=== PATIENT | male | born 1940 | race Caucasian/White ===

== ENCOUNTER 2016-10-16 15:14 | Inpatient (IN) | payer MEDICARE ==
--- NOTE | ~2016-10-16 | HP ---
Unit #: [id number] #: [id number] Patient: NEELIMA MEZA [id number] [place], [place] [address] [id number] MR#: [id number] NAME: NEELIMA MEZA ROOM: Age: 76 Sex: M Admission Date: 10/16/2016 : 1940 Attending Physician: Davon Ivy M.D. Primary Care Physician: Jared Underwood M.D. HISTORY AND PHYSICAL CHIEF COMPLAINT Double vision, nausea, vomiting for three days. DISCUSSION This is a 76-year-old gentleman, history of hard of hearing with cochlear implant, history of hypertension, benign prostate hypertrophy. He presented to emergency room with chief complaint of two days ago he had some blurring of vision and seeing double vision plus he has been having some nausea and vomiting. He went to see the primary doctor. He gave him some kind of shot. As per family (1) shot for his nausea and vomiting which has been resolved and he was told to come back on Wednesday if it is not better but with symptoms of dizziness and blurred vision he came to the ER. He also described vertigo. Everything was moving around, which has been resolved, too. He has a cochlear implant. Initially in the ER he had a CT head which was negative. MRI could not do because of cochlear implant. He has a CT angio of the head and neck which shows less than 50% right internal carotid artery mild to moderate plaque, otherwise unremarkable CTA. He has a questionable left eye extraocular muscle palsy and case was discussed with Dr. Lewis but he was found to be with elevated blood pressure. Eventually he has been admitted for high blood pressure monitoring for overnight observation. He feels better now. He denies any vertigo. He said is has been resolved. He denies any further nausea or vomiting. He still says he sees double vision I the left eye. He denies any other complaint. No chest pain. No cough. No fever. No chills. PAST MEDICAL HISTORY 1. Hypertension. 2. Benign prostate hypertrophy. 3. Hard of hearing. PAST SURGICAL HISTORY 1. History of prostate surgery. 2. Left arm surgery. 3. Right hand carpal tunnel release. 4. Cochlear implant. ALLERGIES No known drug allergy. FAMILY HISTORY Noncontributory. Unit #: [id number] #: [id number] Patient: NEELIMA MEZA SOCIAL HISTORY He denies smoking, denies other illicit drug use, drinks alcohol very rarely socially. MEDICATION FROM HOME He is supposed to be on: 1. Coreg at 12.5 b.i.d. 2. Lisinopril. 3. Doxazosin 4 mg. 4. Meclizine. 5. Mobic. REVIEW OF SYSTEMS All review of systems negative except history of present illness. PHYSICAL EXAMINATION GENERAL: On examination elderly man lying in the bed comfortably not in any distress. On general examination he is alert, awake, oriented x3, comfortable, not in any distress. VITAL SIGNS: Current vitals are following: Temperature 98.2, heart rate 70, respiration 18, blood pressure 185/102, oxygen 98% on room air. HEENT EXAMINATION: Pupils equally react to light and accommodation. Left eye medial rectus palsy. NECK: Supple. No JVD. No thyromegaly. LUNGS: Clear to auscultation. No rhonchi. No wheezing. HEART: S1, S2, regular rate and rhythm. ABDOMEN: Soft, nontender, nondistended. Bowel sounds positive. EXTREMITIES: Inspection normal. No cyanosis. No clubbing. No edema. NEUROLOGIC: Alert and oriented x4. No focal neurologic deficit. DIAGNOSTIC STUDIES LABORATORY: His laboratory workup is following: Troponin less than 0.05. Glucose is 90. Chemistry is sodium 136, potassium 3.6, chloride 103, glucose 104, BUN 21, creatinine 1. LFT within normal limits. INR 1.2. White count 6, hemoglobin 15, hematocrit 46, platelets 127. IMAGING: CTA negative. CTA of head and neck shows less than 50% right internal carotid mild to moderate plaque. Vertebral artery patent. Intact posterior circulation. ASSESSMENT AND PLAN 1. 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 2. Hypertensive urgency: I have discussed with him. He says he is not taking medication today. Will admit the patient, monitor overnight and resume his home medication, place on hydralazine on p.r.n. basis. 3. History of hypertension. 4. Benign prostate hypertrophy. 5. History of cochlear implant. 6. DVT prophylaxis: Will place the patient on SCDs. Dictated by Lisa Hutchinson M.D. Unit #: [id number] #: [id number] Patient: NEELIMA MEZA OSVALDO/david TD: 10/16/2016 21:31 JOB #: [id number] HISTORY AND PHYSICAL Page 1 of 1 X X HISTORY AND PHYSICAL
--- NOTE | ~2016-10-16 | CT18 ---
[facility] A Service of [facility] & [facility] RADIOLOGY TEXT RESULTS PATIENT: NEELIMA MEZA LOCATION: [place] [id number] : 41 UNIT #: [id number] AGE: [address]: Gil Talamantes MD SEX: M ORDER DR: [id number] [facility] [address] [place], [place] [address] [id number] I MR#: [id number] Acc #: [id number] NAME: NEELIMA MEZA : 1940 SEX: M STUDY DATE/TIME: 10/18/2016 16:04 UNIT: [facility] ROOM: [facility] STUDY DESCRIPTION: CT Angio Head Stroke Attending Physician: Gil Talamantes M.D. Ordering Physician: Casimiro Lewis M.D. Primary Care Physician: Jared Underwood M.D. MEDICAL IMAGING REPORT This report is preliminary unless electronic signature is present EXAM CT angio head stroke, 10/18/2016 HISTORY Diplopia, dizzy, nausea and vomiting for 3 days. New onset left side weakness and left facial droop today. FINDINGS Please see CT ANGIO NECK STROKE report for combined text results. STAT * RESULT Dictated by... Rey Hart M.D. THIS IS AN ELECTRONICALLY VERIFIED REPORT Rey Hart M.D. at 10/18/2016 10:22 PM DFL/psc TD: 10/18/2016 17:32 JOB #: [id number] MEDICAL IMAGING REPORT Page 1 of 1 COPY
--- NOTE | ~2016-10-16 | EKG ---
PATIENT: NEELIMA MEZA UNIT #: [id number] Ventricular Rate: 65 BPM Atrial Rate: 65 BPM P-R Interval: 180 ms QRS Duration: 142 ms Q-T Interval: 420 ms QTC Calculation(Bezet): 436 ms P Alto: 34 degrees Calculated R Alto: 5 degrees Calculated T Alto: -6 degrees Diagnosis Line: Normal sinus rhythm Diagnosis Line: Right bundle branch block Diagnosis Line: Inferior infarct , age undetermined Diagnosis Line: Abnormal ECG Diagnosis Line: No previous ECGs available Diagnosis Line: Confirmed by SUZAN CA MD ([id number]) on Diagnosis Line: 10/17/2016 4:28:20 PM INTERPRETING MD: LANNY HERNÁNDEZ
--- NOTE | ~2016-10-16 | CT71 ---
[facility] A Service of [facility] RADIOLOGY TEXT RESULTS PATIENT: NEELIMA MEZA [facility]: [facility] UNIT #: [id number] AGE: [address]: Gil Talamantes MD SEX: M ORDER DR: [id number] [facility] [address] [facility]. [place], [place] [address] [id number] I MR#: [id number] Acc #: [id number] NAME: NEELIMA MEZA : 1940 SEX: M STUDY DATE/TIME: 10/16/2016 18:24 UNIT: [facility] ROOM: [id number] STUDY DESCRIPTION: CT Head Wo Contrast Attending Physician: Jose Rafael Magana M.D. Ordering Physician: Davon Ivy M.D. Primary Care Physician: Jared Underwood M.D. MEDICAL IMAGING REPORT This report is preliminary unless electronic signature is present EXAM Noncontrast head CT HISTORY Double vision, nausea and vomiting x3 days. COMPARISON STUDIES Head CT 04/13/2016. TECHNIQUE This CT exam was performed with one or more of the following radiation dose reduction techniques: automatic exposure control, adjustment of mA and/or kV according to patient size, and iterative reconstruction. FINDINGS Axial noncontrast imaging of the brain demonstrates postsurgical changes from a right-sided cochlear implant with leads extending into the right cochlea and changes from partial mastoidectomy. The implant produces streak artifact, limiting evaluation of the brain parenchyma. Visualized brain parenchyma appears normal. No mass or mass effect or midline shift. No hemorrhage or abnormal extraaxial fluid collections. Carotid calcifications are seen within the cavernous carotids bilaterally. No hemorrhage or abnormal extraaxial fluid collections. Left mastoids and middle ear cavity appear normal. Visualized sinuses unremarkable. IMPRESSION No acute intracranial abnormality identified. Study somewhat limited due to streak artifact from the patient's right-sided cochlear implant. Implant projects into the region of the right cochlea and there are changes on the right from partial mastoidectomy. [facility] A Service [facility] RADIOLOGY TEXT RESULTS PATIENT: NEELIMA MEZA [facility] : 41 UNIT #: [id number] AGE: [address]: Gil Talamantes MD SEX: M ORDER DR: Dictated by... Alesha Majano M.D. THIS IS AN ELECTRONICALLY VERIFIED REPORT Alesha Majano M.D. at 10/19/2016 6:06 AM STEPHANIE/magui TD: 10/16/2016 22:55 JOB #: [id number] MEDICAL IMAGING REPORT Page 1 of 1 COPY
--- NOTE | ~2016-10-16 | CT17 ---
[facility] A Service of [facility] RADIOLOGY TEXT RESULTS PATIENT: NEELIMA MEZA LOCATION: [facility] 313-01 : 41 UNIT #: [id number] AGE: [address]: Gil Talamantes MD SEX: M ORDER DR: [id number] [facility] [address] [place], [place] [address] [id number] I MR#: [id number] Acc #: [id number] NAME: NEELIMA MEZA : 1940 SEX: M STUDY DATE/TIME: 10/16/2016 18:28 UNIT: [address] ROOM: [facility] STUDY DESCRIPTION: CT Angio Head Attending Physician: Gil Talamantes M.D. Ordering Physician: Davon Ivy M.D. Primary Care Physician: Jared Underwood M.D. MEDICAL IMAGING REPORT This report is preliminary unless electronic signature is present EXAM CT scan head and neck with contrast with carotid CT angiography HISTORY Diplopia, nausea, vomiting for the past 3 days with dizziness. TECHNIQUE Thin-section imaging was obtained from the mid-mediastinum to the top of head with contrast. 100 mL of Isovue was used. CT angiography was performed with thick-sliding MIPs, curved planar reformats and 3-D volumetric imaging with surface-shaded and volume-shaded display. This CT exam was performed with one or more of the following radiation dose reduction techniques: automatic exposure control, adjustment of mA and/or kV according to patient size, and iterative reconstruction. FINDINGS Extravascular structures are unremarkable. The CT angiographic study shows wide patency of great vessels at their origins. In the posterior circulation, both vertebral arteries are widely patent. The right is more dominant than the left. There is mild non-occlusive calcified plaque in both distal vertebrals. The basilar artery is widely patent. In the carotid circulation, there is plaque at both carotid bifurcations. Focal soft plaque is seen in the proximal right internal carotid artery. It narrows the lumen approximately 20% by NASCET criteria. There is no stenosis on the left. The distal carotids through the siphons are widely patent with eccentric non-occlusive plaque in both carotid siphons. [facility] A Service of [facility] RADIOLOGY TEXT RESULTS PATIENT: NEELIMA MEZA LOCATION: [facility] 313-01 : 41 UNIT #: [id number] AGE: [address]: Gil Talamantes MD SEX: M ORDER DR: In the intracranial circulation, there is no evidence of aneurysm, vascular malformation or major branch vessel occlusion. There is moderate diffuse small vessel disease intracranially. No critical stenosis is seen. IMPRESSION Moderate diffuse small vessel atherosclerotic disease intracranially. Mild plaque at both bifurcations, greater on the right than on the left, but no significant stenosis by NASCET criteria. Dictated by... Yamil Hawkins M.D. THIS IS AN ELECTRONICALLY VERIFIED REPORT Yamil Hawkins M.D. at 10/17/2016 11:28 AM ARLEN/magui TD: 10/17/2016 09:51 JOB #: [id number] MEDICAL IMAGING REPORT Page 1 of 1 COPY
--- NOTE | ~2016-10-16 | CT72 ---
[facility] A Service of [facility] & [facility] RADIOLOGY TEXT RESULTS PATIENT: NEELIMA MEZA LOCATION: [address] : 41 UNIT #: [id number] AGE: [address]: Gil Talamantes MD SEX: M ORDER DR: [id number] [facility] [address] [place], [place] [address] [id number] I MR#: [id number] Acc #: [id number] NAME: NEELIMA MEZA : 1940 SEX: M STUDY DATE/TIME: 10/18/2016 15:45 UNIT: [facility] ROOM: [facility] STUDY DESCRIPTION: CT Head Wo Contrast Stroke Attending Physician: Gil Talamantes M.D. Ordering Physician: Casimiro Lewis M.D. Primary Care Physician: Jared Underwood M.D. MEDICAL IMAGING REPORT This report is preliminary unless electronic signature is present EXAM Head CT, no contrast, 10/18/2016 INDICATIONS Double vision, dizziness, nausea, vomiting for 3 days. New onset left-sided weakness, left-sided facial droop that began at 1515 hours today. TECHNIQUE Noncontrast CT of the brain was performed. This CT exam was performed with one or more of the following radiation dose reduction techniques: Automatic exposure control, adjustment of mA and/or kV according to patient size, and iterative reconstruction. COMPARISON 10/16/[address] BRAIN: There is significant streak artifact related to the patient's cochlear implant on the right. Sulci and ventricles are unremarkable, no midline shift, no evidence of acute intracranial hemorrhage. No mass, mass effect or edema to suggest acute infarct. No extraaxial fluid collections are identified. Globes are intact. Bones are intact. There is minimal ethmoid sinus disease. Moderately extensive atherosclerotic change in the anterior and posterior circulation. IMPRESSION 1. No clearly acute intracranial process, no evidence of acute intracranial hemorrhage. 2. Extensive streak artifact from the patient's right cochlear implant. Postop changes related to the cochlear implant involving the mastoid air cell complex on the right. STS. [facility] A Service of [facility] & [facility] RADIOLOGY TEXT RESULTS PATIENT: NEELIMA MEZA LOCATION: [facility]-23 : 41 UNIT #: [id number] AGE: [address]: Gil Talamantes MD SEX: M ORDER DR: Dictated by... Gurpreet Ortez M.D. THIS IS AN ELECTRONICALLY VERIFIED REPORT Gurpreet Ortez M.D. at 10/18/2016 8:43 PM PAULA/jimmy TD: 10/18/2016 18:08 JOB #: [id number] MEDICAL IMAGING REPORT Page 1 of 1 COPY
--- NOTE | ~2016-10-16 | CO ---
Unit #: [id number] #: [id number] Patient: NEELIMA MEZA [id number] [facility] [address]. [place], [place] [address] [id number] I MR#: [id number] NAME: NEELIMA MEZA ROOM: 313 Age: 76 Sex: M Admission Date: 10/16/2016 : 1940 Attending Physician: Gil Talamantes M.D. Primary Care Physician: Jared Underwood M.D. Consultation Date: 10/17/2016 CONSULTATION REPORT PRIMARY CARE DOCTOR Jared Underwood M.D. REASON FOR CONSULTATION Diplopia, nausea, and vomiting. PATIENT IDENTIFICATION This is a 76-year-old right-handed white male, who was evaluated in room 313 at [facility]. SOURCE OF INFORMATION The patient and family and evaluation by the ER physician, my discussion with the ER physician. PROBLEM LIST 1. Hypertension. 2. BPH. 3. He is hard of hearing. 4. He is status post prostate surgery. 5. Left arm surgery. 6. Right hand carpal tunnel release and cochlear implant. HISTORY OF PRESENT ILLNESS This is a 76-year-old gentleman, who is actually hard of hearing and has other problems. He came to the emergency room because he has been having some problems of blurred vision, seeing double and having some nausea and vomiting and he thought he had a floater on the right side. This has been going on for almost 3 plus days now. He went to primary care physician and got some sort of shot, questionable nausea and vomiting. The blurred vision got better, but he came to have further evaluation. He could not get an MRI because he has a cochlear implant. He went for CT, which really did not show anything. He went for CTA, which really also did not show anything else. He is not taking aspirin. He is feeling better right now. He has been started on aspirin and low-dose Lipitor. He is not a smoker. We suspect small stroke, but cannot confirm or deny it otherwise. No falls or injuries. No seizures. No focal numbness or tingling. No migraine. PAST MEDICAL HISTORY As discussed above. PAST SURGICAL HISTORY As discussed above. Unit #: [id number] #: [id number] Patient: NEELIMA MEZA ALLERGIES None. HOME MEDICATIONS Coreg 12.5 mg b.i.d., lisinopril, doxazosin, meclizine, Mobic. FAMILY HISTORY No strokes. SOCIAL HISTORY Denies tobacco or alcohol use except for on rare occasions. REVIEW OF SYSTEMS GENERAL: He denies any weight issues, fever, chills, rigor, or sweats. HEENT: No headaches, but he has double vision. He has hearing problem. NECK: No neck problems. CARDIOVASCULAR: No chest pain, clubbing, cyanosis, orthopnea, or palpitation. PULMONARY: No shortness of air, cough, or expectoration. GASTROINTESTINAL: No nausea, vomiting, diarrhea, or constipation. GENITOURINARY: No genitourinary symptoms. EXTREMITIES: No extremity problems. BACK: No back problem. PSYCHIATRIC: No psychotic issue. NEUROLOGIC: As discussed. No other hematologic, dermatologic, or endocrine problems known to me. PHYSICAL EXAMINATION VITAL SIGNS: Temperature 98.2, pulse 88, respirations 20, blood pressure 177/110, the maximum was 194 systolic and 120 diastolic, his O2 sats were 93% to 98%. Weight of 193 pounds, BMI was 30. NEUROLOGIC: The patient is awake. He is alert. He is essentially oriented. He is hard of hearing and very difficult to communicate, but we were able to talk. He can name and he can follow commands. No right or left confusion. No finger agnosia. Cranial nerve examination demonstrates full yeh of vision to confrontation. His left eye, he has significant left mesorectal deficiency, but he is able to cross midline some. He is not saying, but he does get dysconjugate when he looks to the right side. He is not really complaining or diplopia now. Full yeh of vision. No ptosis. No nystagmus. Sensation on the face and scalp are normal. Strength of muscles of facial expression are normal. Hearing seemed to be very minimal on the right side if at all. Tongue was midline. I could not visualize oropharynx or uvula. Head turning was spontaneous. Motor examination demonstrated normal bulk, tone. Strength was essentially 5/5. Sensory examination intact for soft touch and pain sensation. No extinction was seen. Romberg was not evaluated. Unit #: [id number] #: [id number] Patient: NEELIMA MEZA Gait examination was deferred. I could not get any reflexes. Toes are downgoing. Coordination was normal. DIAGNOSTIC STUDIES LABORATORY RESULTS: Reviewed. IMAGING STUDIES: Reviewed. IMPRESSION This is a very interesting 76-year-old gentleman with left mesorectal deficit. My question is this is something new because he is not really complaining of double vision, but he does have some risk factors, so I will do a stroke workup. Put him on aspirin. I cannot do an MRI. I discussed stroke workup initiated, not an intervention candidate. If there are any other issues, please let me know. Other than that, we will continue the present plan and call me for any other questions, issues, or concerns. Further treatment will depend if we do find something. Otherwise, suspect small-vessel disease. Another possibility is that he has had this deficit very long time, but he got dizzy and lightheaded and it is sort of showed as blurred vision, but nothing else. Call me if any other questions, issues, or concerns. Dictated by... Promise Price/morris TD: 10/18/2016 08:09 JOB #: [id number] CONSULTATION REPORT Page 1 of 1 X Casimiro Lewis MD X CONSULTATION REPORT
--- NOTE | ~2016-10-16 | EKG ---
PATIENT: NEELIMA MEZA UNIT #: [id number] Ventricular Rate: 69 BPM Atrial Rate: 69 BPM P-R Interval: 174 ms QRS Duration: 134 ms Q-T Interval: 424 ms QTC Calculation(Bezet): 454 ms P Lowry: 67 degrees Calculated R Lowry: 17 degrees Calculated T Lowry: 1 degrees Diagnosis Line: Normal sinus rhythm Diagnosis Line: Right bundle branch block Diagnosis Line: Possible Inferior infarct (cited on or before Diagnosis Line: 16-OCT-2016) Diagnosis Line: Abnormal ECG Diagnosis Line: When compared with ECG of 16-OCT-2016 17:05, Diagnosis Line: T wave inversion now evident in Anterior leads Diagnosis Line: Confirmed by RAMOS NORMAN MD ([id number]) on Diagnosis Line: 10/19/2016 8:09:54 AM INTERPRETING MD: ESTER HERNÁNDEZ
--- NOTE | ~2016-10-16 | CT23 ---
[facility] A Service of [facility] & [facility] RADIOLOGY TEXT RESULTS PATIENT: NEELIMA MEZA LOCATION: [facility] 313-01 : 41 UNIT #: [id number] AGE: [address]: Gil Talamantes MD SEX: M ORDER DR: [id number] [facility] [address]. [place], [place] [address] [id number] I MR#: [id number] Acc #: [id number] NAME: NEELIMA MEZA : 1940 SEX: M STUDY DATE/TIME: 10/16/2016 18:28 UNIT: [address] ROOM: [facility] STUDY DESCRIPTION: CT Angio Neck Attending Physician: Gil Talamantes M.D. Ordering Physician: Davon Ivy M.D. Primary Care Physician: Jared nUderwood M.D. MEDICAL IMAGING REPORT This report is preliminary unless electronic signature is present EXAM CTA head and neck HISTORY Refer below. FINDINGS Please refer to the CTA head report on the same date for complete details. Dictated by... Yamil Hawkins M.D. THIS IS AN ELECTRONICALLY VERIFIED REPORT Yamil Hawkins M.D. at 10/17/2016 11:28 AM RLF/magui TD: 10/17/2016 09:53 JOB #: [id number] MEDICAL IMAGING REPORT Page 1 of 1 COPY
--- NOTE | ~2016-10-16 | CT24 ---
[facility] A Service of [facility] & [facility] RADIOLOGY TEXT RESULTS PATIENT: NEELIMA MEZA LOCATION: [address] : [birth year] UNIT #: [id number] AGE: [address]: Gil Talamantes MD SEX: M ORDER DR: [id number] [facility] [address] [place], [place] [address] [id number] MR#: [id number] #: [id number] NAME: NEELIMA MEZA : 1940 SEX: M STUDY DATE/TIME: 10/18/2016 16:04 UNIT: [facility] ROOM: [facility] STUDY DESCRIPTION: CT Angio Neck Stroke Attending Physician: Gil Talamantes M.D. Ordering Physician: Casimiro Lewis M.D. Primary Care Physician: Jared Underwood M.D. MEDICAL IMAGING REPORT This report is preliminary unless electronic signature is present EXAM CT angiogram head and neck with IV contrast HISTORY Diplopia, dizzy, nausea and vomiting for 3 days. New onset left side weakness and left facial droop today. FINDINGS IV contrast-enhanced CT angiogram of the head and neck was performed with 3-D reconstructions. This CT exam was performed with one or more of the following radiation dose reduction techniques: Automatic exposure control, adjustment of mA and/or kV according to patient size, and iterative reconstruction. CT ANGIOGRAM NECK: The common carotid arteries are widely patent bilaterally. Minimal atherosclerotic plaque in the proximal internal carotid arteries bilaterally, with less than 10% stenosis by NASCET criteria. The remainder of the cervical internal carotid arteries are widely patent. Bilateral vertebral arteries are widely patent, dominant on the right. 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 I called this finding to the patient's nurse, Lu, prior to this dictation. The left cavernous ICA is patent with mild atherosclerotic plaque. The left A1 segment is widely patent, and a patent anterior communicating artery provides flow to the A2 segments bilaterally with short-segment retrograde flow into the right A1 segment. Dominant intracranial right vertebral artery with relatively hypoplastic left intracranial vertebral artery with no significant stenosis. The basilar artery is widely patent. Mild multifocal short segment atherosclerotic stenoses in the posterior cerebral arteries bilaterally. The left middle cerebral artery is patent with no focal stenosis. Postop [facility] A Service of [facility] & [facility] RADIOLOGY TEXT RESULTS PATIENT: NEELIMA MEZA LOCATION: [address] : [birth year] UNIT #: [id number] AGE: [address]: Gil Talamantes MD SEX: M ORDER DR: changes of right cochlear implant. IMPRESSION 1. 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 I called this finding to the patient's nurse prior to this dictation. 2. Mild multifocal atherosclerotic stenoses in the posterior cerebral arteries bilaterally. 3. Anterior communicating artery provides flow to the right A2 segment. 4. No hemodynamically significant cervical carotid artery stenosis by NASCET criteria. 5. Both vertebral arteries are widely patent, dominant on the right. STAT * RESULT Dictated by... Rey Hart M.D. THIS IS AN ELECTRONICALLY VERIFIED REPORT Rey Hart M.D. at 10/18/2016 10:22 PM DFL/jimmy TD: 10/18/2016 17:30 JOB #: [id number] MEDICAL IMAGING REPORT Page 1 of 1 COPY
[~2016-10-16 15:14] MED LIST: LISINOPRIL; LISINOPRIL PO; LOPRESSOR; NAPROXEN PO; PREDNISONE PO; TOPROL XL PO; TYLENOL #3 PO; ULTRAM PO; [UNRECOGNIZED DRUG - REMARK]; [UNRECOGNIZED DRUG - REMARK]
[2016-10-16] MEDS ORDERED: COREG CR40 M1 PO ×2 (17:02→17:26)
[2016-10-16] MEDS ORDERED: EXFORGE 10-3201 EACH PO (17:02)
[2016-10-16] MEDS ORDERED: PREVACID15 M1 PO (17:03)
[2016-10-16] MEDS ORDERED: PRILOSEC PO (17:04)
[2016-10-16] MEDS ORDERED: PATIENT'S PHARMACY ×2 (17:04→17:41)
[2016-10-16] MEDS ORDERED: SYNTHROID PO (17:05)
[2016-10-16] MEDS ORDERED: DULOXETINE HCL60 M1 PO (17:06)
[2016-10-16] MEDS ORDERED: LEVOCETIRIZINE D5 MG PO (17:06)
[2016-10-16] MEDS ORDERED: LYRICA75 MG PO (17:07)
[2016-10-16] MEDS ORDERED: HYDRALAZINE HCL50 MG PO (17:07)
[2016-10-16] MEDS ORDERED: FLEXERIL10 MG PO (17:08)
[2016-10-16] MEDS ORDERED: LASIX20 MG (17:08)
[2016-10-16] MEDS ORDERED: TALADINE150 MG PO (17:09)
[2016-10-16] MEDS ORDERED: FERRO-TIME325 MG PO (17:10)
[2016-10-16] MEDS ORDERED: CHLORTHALIDONE25 MG PO (17:10)
[2016-10-16] MEDS ORDERED: COUMADIN5 MG PO (17:10)
[2016-10-16] MEDS ORDERED: VOTRIENT200 MG PO (17:10)
[2016-10-16] MEDS ORDERED: COLCRYS0.6 M2 PO (17:11)
[2016-10-16] MEDS ORDERED: ZYLOPRIM PO (17:11)
[2016-10-16] MEDS ORDERED: ANTIVERT PO (17:12)
[2016-10-16] MEDS ORDERED: KLOR-CON SPRIN10 MEQ PO (17:12)
[2016-10-16] MEDS ORDERED: CLOTRIMAZOLE/BE15 G1 TOP (17:13)
[2016-10-16] MEDS ORDERED: MUPIROCIN0.9 GM (17:13)
[2016-10-16] MEDS ORDERED: OPTIVAR OPHTHA1 DROP (17:14)
[2016-10-16] MEDS ORDERED: MULTIVITAMINS1 EAC3 PO (17:15)
[2016-10-16] MEDS ORDERED: VITAMIN B122500 MC1 PO (17:15)
[2016-10-16] MEDS ORDERED: OXYCODONE-ACET1 EAC1 PO (17:15)
[2016-10-16] MEDS ORDERED: TURMERIC COMPL1 EACH PO (17:16)
[2016-10-16] MEDS ORDERED: VITAMIN D31000 UNIT PO (17:16)
[2016-10-16] MEDS ORDERED: GINSENG EXTRAC100 MG PO (17:17)
[2016-10-16 17:22] LABS: BASOPHIL% 0.3 % (0-2.5); EOSINOPHIL% 0.6 % (0.0-7.0); HEMATOCRIT 46.9 % (38.0-50.0); HEMOGLOBIN 15.9 gm/dL (13.0-16.0); LYMPHOCYTE% 30.8 % (17.0-45.0); MEAN CELL VOLUME 96.9 FL (83-96); MEAN CORPUSCULAR HEMOGLOBIN 32.8 PG (28-34); MEAN CORPUSCULAR HGB CONC 33.8 g/dL (30-36); MONOCYTE# 0.5 X10e3 (0-1.0); MONOCYTE% 7.7 % (3.0-12.0); NEUTROPHIL# 3.9 X10e3 (1.5-7.1); NEUTROPHIL% 60.6 % (40-75); PLATELET COUNT 127 X10e3 (140-420); RED BLOOD COUNT 4.84 X10e (3.90-5.60); RED CELL DISTRIBUTION WIDTH 13.5 % (11.0-15.5); WHITE BLOOD COUNT 6.4 X10e3 (4.0-10.5)
[2016-10-16 17:23] LABS: DIFF IND NO
[2016-10-16 17:32] LABS: INR 1.2; PARTIAL THROMBOPLASTIN TIME 25.7 SECONDS (23.5-31.3); PROTHROMBIN TIME (PATIENT) 12.9 SECONDS (9.6-11.5)
[2016-10-16 17:40] LABS: ALBUMIN SERUM 4.4 g/dL (3.5-5.0); BILIRUBIN, DIRECT 0.2 mg/dL (0.0-0.2); BILIRUBIN,INDIRECT 1.3 mg/dL (0.0-0.9); BILIRUBIN,TOTAL 1.5 mg/dL (0.2-2.0); CALCIUM SERUM 8.8 mg/dL (8.4-10.2); GLOM FILT RATE Estimated 73.3 mL/min (>60); POTASSIUM 3.6 mmol/L (3.5-5.1); PROTEIN TOTAL SERUM 7.5 g/dL (6.0-8.3)
[2016-10-16] MEDS ORDERED: MOBIC15 MG PO (17:51)
[2016-10-16] MEDS ORDERED: MEDI-MECLIZINE25 M1 PO (17:51)
[2016-10-16 19:41] LABS: POC - CKMB 1.9 ng/mL (0.0-7.9); POC - TROPONIN <0.05 ng/mL (<=0.05)
[2016-10-16] MEDS ORDERED: CARDURA4 M1 PO (21:12)
[2016-10-16] MEDS ORDERED: LISINOPRIL PO (21:12)
[2016-10-16] MEDS ORDERED: CARVEDILOL12.5 MG PO (21:12)
[2016-10-17 14:43] LABS: CALCIUM SERUM 9.3 mg/dL (8.4-10.2); GLOM FILT RATE Estimated 73.3 mL/min (>60); POTASSIUM 4.5 mmol/L (3.5-5.1)
[2016-10-18 08:58] LABS: BUN/CREATININE RATIO 33.33; CREATININE SERUM 0.9 mg/dL (0.6-1.4); GLOM FILT RATE Estimated 83.3 mL/min (>60); POTASSIUM 3.7 mmol/L (3.5-5.1)
[2016-10-18 16:46] LABS: BASOPHIL% 0.4 % (0-2.5); EOSINOPHIL% 0.4 % (0.0-7.0); HEMATOCRIT 48.8 % (38.0-50.0); HEMOGLOBIN 16.3 gm/dL (13.0-16.0); LYMPHOCYTE# 1.6 X10e3 (1.0-3.5); LYMPHOCYTE% 22.4 % (17.0-45.0); MEAN CELL VOLUME 98.2 FL (83-96); MEAN CORPUSCULAR HEMOGLOBIN 32.9 PG (28-34); MEAN CORPUSCULAR HGB CONC 33.5 g/dL (30-36); MEAN PLATELET VOLUME 10.8 FL (6.5-11.5); MONOCYTE# 0.6 X10e3 (0-1.0); MONOCYTE% 8.9 % (3.0-12.0); NEUTROPHIL# 4.8 X10e3 (1.5-7.1); NEUTROPHIL% 67.9 % (40-75); PLATELET COUNT 115 X10e3 (140-420); RED BLOOD COUNT 4.97 X10e (3.90-5.60); RED CELL DISTRIBUTION WIDTH 13.4 % (11.0-15.5); WHITE BLOOD COUNT 7.1 X10e3 (4.0-10.5)
[2016-10-18 16:47] LABS: DIFF IND NO
[2016-10-18 16:51] LABS: INR 1.2; PARTIAL THROMBOPLASTIN TIME 26.8 SECONDS (23.5-31.3); PROTHROMBIN TIME (PATIENT) 12.9 SECONDS (9.6-11.5)
[2016-10-18 17:00] LABS: BILIRUBIN,TOTAL 1.3 mg/dL (0.2-2.0); BUN/CREATININE RATIO 34.44; CREATININE SERUM 0.9 mg/dL (0.6-1.4); GLOM FILT RATE Estimated 83.3 mL/min (>60); POTASSIUM 4.2 mmol/L (3.5-5.1); PROTEIN TOTAL SERUM 6.8 g/dL (6.0-8.3)
[2016-10-18 17:20] LABS: %MB 2.8 % (0.0-4.0); CHOLESTEROL 156 mg/dL (0-200); HDL CHOLESTEROL 32 mg/dL (29-75); LDL CHOLESTEROL 104 mg/dL (-130); LDL/HDL RATIO 3 RATIO (0-4); MB 3.6 ng/ml; TRIGLYCERIDES 101 mg/dL (10-160)
== END 2016-10-18 18:25 | disposition hospice, home (50) | DRG 68 ==
LOC: CED 15:14 → CICCU3 21:11 → CEDOF 21:11 → CICCU3 21:11 → CED 21:11 → C3A PCU 21:30 → CEDOF 21:30 → C3A PCU 10-17 01:22 → CEDOF 10-17 01:22 → C3A PCU 10-17 01:22 → CICCU3 10-18 16:31
PROVIDERS: Emergency Medicine; Internal Medicine
PROC: B328YZZ Computerized Tomography (CT Scan) of Bilateral Internal Carotid Arteries using Other Contrast (ICD-10-PCS; principal; 2016-10-18)
PROC: B32GYZZ Computerized Tomography (CT Scan) of Bilateral Vertebral Arteries using Other Contrast (ICD-10-PCS; 2016-10-18)
PROC: B32RYZZ Computerized Tomography (CT Scan) of Intracranial Arteries using Other Contrast (ICD-10-PCS; 2016-10-18)
PROC: B24BYZZ Ultrasonography of Heart with Aorta using Other Contrast (ICD-10-PCS; 2016-10-18)
PROC: 3E03317 Introduction of Other Thrombolytic into Peripheral Vein, Percutaneous Approach (ICD-10-PCS; 2016-10-18)
DX: I66.01 Occlusion and stenosis of right middle cerebral artery (principal); I10 Essential (primary) hypertension; H53.8 Other visual disturbances; N40.0 Benign prostatic hyperplasia without lower urinary tract symptoms; H91.90 Unspecified hearing loss, unspecified ear; R42 Dizziness and giddiness; I16.0 Hypertensive urgency; R11.2 Nausea with vomiting, unspecified; I65.21 Occlusion and stenosis of right carotid artery
CPT/HCPCS: 36415; 70450; 70496; 70498; 80048; 80053; 80061; 80076; 82550; 82553; 82947; 83036; 84484; 85025; 85610; 85730; 86140; 93005; 96374; 96375; 97116; 97161; 97165; 99285; C8929; G8978-GP; G8979-GP; G8980-GP; G8987-GO; G8988-GO; G8989-GO; J0360; J2765; J2930; J2997; Q9967